=== PATIENT | male | born 1950 | race Caucasian/White ===

== ENCOUNTER 2019-04-08 10:28 | Day surgery (SDC) | payer OTHER, MEDICARE ==
--- NOTE | 2019-03-11 10:52 | EKG ---
Test Date: 2019-03-11 Test Time: 10:19:27 Painter Plate: WILBER MEASUREMENT RESULTS: Intervals: Rate: 51 DE: 150 QRSD: 86 QT: 436 QTc: 401 [place]: P: 55 DE: 150 QRS: 39 T: 59 INTERPRETIVE STATEMENTS: Sinus bradycardia Otherwise normal ECG No previous ECG available for comparison Electronically Signed On 03-11-19 10:52:02 CDT by Robert Unger
[2019-03-11 11:03] LABS: Absolute Lymphocytes (CBC) 1.9 K/uL (0.7-4.9); Basophils % 0.4 % (0-1.3); Hematocrit 44.4 % (39.6-49.0); Lymphocytes % 26.1 % (15.3-44.8); MPV 9.4 fL (7.6-11.3); RBC Red Blood Cell Count 4.81 M/uL (4.33-5.43)
[2019-03-11 11:22] LABS: Potassium 4.2 mmol/L (3.5-5.1)
[2019-04-08] MEDS ORDERED: EPINEPHRINE/PF 1 MG/ML AMP ONE (10:42)
[2019-04-08] MEDS ORDERED: MOXIFLOXACIN HCL 10 DROPS/ML **OR USE OPTH ONE (10:43)
[2019-04-08] MEDS ORDERED: DUOVISC 1 KIT OPTH ONE (10:43)
[2019-04-08] MEDS ORDERED: BALANCED SALT IRRIG PLAIN 500 ML BTL IRR ONE (10:43)
[2019-04-08] MEDS ORDERED: NS 0.9% VIAL 10 ML ONE (10:45)
[2019-04-08] MEDS ORDERED: NA CHLORIDE 0.9% 500 ML ONE (10:50)
[2019-04-08] MEDS ORDERED: LIDOCAINE 2% MPF 5 ML VIAL ONE ×2 (10:51→12:06)
[2019-04-08] MEDS ORDERED: TETRACAINE HCL 0.5% 4ML OPTH ONE (10:51)
[2019-04-08] MEDS ORDERED: BUPIVACAINE 0.25% PF 10 ML VIAL ONE (10:51)
[2019-04-08] MEDS: PHENYLEPHRINE 10% OPTH 5ML ONE ×3 (11:30→11:40)
[2019-04-08] MEDS: CYCLOPENTOLATE 1% OPTH 2 ML ONE ×3 (11:30→11:40)
[2019-04-08] MEDS ORDERED: FENTANYL CITR 100 MCG/2 ML ONE (12:06)
[2019-04-08] MEDS ORDERED: PROPOFOL 200 MG/20 ML VIAL IV ONE (12:06)
[2019-04-08] MEDS ORDERED: MIDAZOLAM HCL 2 MG/2 ML INJ ONE (12:06)
[2019-04-08] MEDS ORDERED: ONDANSETRON 4 MG/2 ML VIAL ONE (12:59)
[2019-04-08] MEDS ORDERED: EPHEDRINE SULF 50 MG/ML VIAL ONE (12:59)
--- NOTE | 2019-04-08 13:17 | P.BOP ---
Preoperative diagnosis: Combined form of cataract OS Postoperative diagnosis: Same Primary procedure: Phacoemulsification with IOL OS Estimated blood loss: None Anesthesia: General Complications: None Implants: ZCB00 +18.0 Transferred to: Recovery Room Condition: Good
--- NOTE | 2019-04-09 00:14 | OP ---
Date of Procedure: 04/08/2019 Surgeon: Mirlande Valentin MD Anesthesiologist: Gary Valverde CRNA; Dunia David CRNA; and Christiano Olmos MD. Preoperative Diagnosis: Combined form of cataract, left eye. Operation Performed: Phacoemulsification with intraocular lens implant, left eye. Anesthesia: General anesthesia. Complications: None. Description Of Procedure: In the operating room the patient was prepped and draped in the usual ster ile fashion for ophthalmic surgery. A lid speculum was placed in the left eye. Two paracentesis sit es were made superiorly and inferiorly in the limbal cornea. Viscoat was placed in the anterior elmo melissa and a crescent blade was used to make a corneal groove and tunnel, and a keratome was used to ent er the anterior chamber. Provisc was placed in the anterior chamber and a 360 degree capsulotomy was performed with a cystitome. The lens was hydrodissected with BSS and rotated freely. The lens was removed with a stop and chop technique. 12.0 phaco CDE was used to remove the lens. Residual cortex was removed with the irrigation and aspiration. Provisc was placed in the capsular bag. A ZCB00 +1 8.0 lens was placed in the capsular bag without complications. Irrigation and aspiration was used to remove residual viscoelastic. The paracentesis sites were hydrated with BSS. The wound and paracen tesis sites were inspected and found to be watertight. Vigamox 0.07 cc was placed intracamerally at the end of the procedure. The eye was irrigated with balanced salt solution. The eye was patched wi th a soft cotton patch and Wilkerson metal shield. The patient was returned to day surgery in good condition. Comments: The patient was performed under general anesthesia due to severe vertigo. Discharge Instructions: Mr. Wright is discharged to home in good condition. He is to follow up with Dr. Valentin in the morning. GABBIE/JANINA Voice ID: [id number] Report ID: [id number]
== END 2019-04-08 15:00 | disposition home or self-care (01) ==
LOC: OR 10:28
PROVIDERS: ATTEND Ophthalmology Retina Specialist
PROC: 08RK3JZ Replacement of Left Lens with Synthetic Substitute, Percutaneous Approach (ICD-10-PCS; 2019-04-08)
PROC: 08RK3JZ Replacement of Left Lens with Synthetic Substitute, Percutaneous Approach (ICD-10-PCS; principal; 2019-04-08 11:00)
DX: H25.12 Age-related nuclear cataract, left eye (principal); H25.042 Posterior subcapsular polar age-related cataract, left eye; H35.3130 Nonexudative age-related macular degeneration, bilateral, stage unspecified; E11.9 Type 2 diabetes mellitus without complications; I10 Essential (primary) hypertension; I25.10 Atherosclerotic heart disease of native coronary artery without angina pectoris; E78.00 Pure hypercholesterolemia, unspecified; Z85.828 Personal history of other malignant neoplasm of skin; Z85.46 Personal history of malignant neoplasm of prostate; Z85.528 Personal history of other malignant neoplasm of kidney; Z95.5 Presence of coronary angioplasty implant and graft; Z88.8 Allergy status to other drugs, medicaments and biological substances; Z91.048 Other nonmedicinal substance allergy status; Z79.82 Long term (current) use of aspirin; Z87.891 Personal history of nicotine dependence; Z83.3 Family history of diabetes mellitus; Z80.9 Family history of malignant neoplasm, unspecified
CPT/HCPCS: 93005; 85025; 80048; 36415; 82962; 66984 ×2; J2704; J0171; J2250; J3010; J2405